=== PATIENT | male | born 1945 | race Caucasian/White ===

== ENCOUNTER 2017-05-07 15:08 | Emergency (ER) | END 2017-05-08 00:39 | disposition home or self-care (01) ==

== ENCOUNTER 2018-05-06 14:42 | Emergency (ER) | payer OTHER ==
[~2018-05-06] VITALS: Ht 175.3 cm; Wt 79.9 kg
[~2018-05-06 14:42] MED LIST: ASPI-535 PO; GLIP5TAB13 PO; HYDR-3672 PO; LISI10TA2 PO
[2018-05-06 14:46] VITALS: Ht 175.3 cm; Wt 79.9 kg
[2018-05-06] MEDS ORDERED: KETOROLAC 15 MG INJ IV STA (15:42)
[2018-05-06] MEDS ORDERED: SOD CHLORIDE 0.9% 500 ML IV STA (15:42)
[2018-05-06] MEDS ORDERED: ASPI-817 PO (15:51)
[2018-05-06] MEDS ORDERED: GLIP5TAB13 PO (15:51)
[2018-05-06] MEDS ORDERED: LISI10TA2 PO (15:51)
[2018-05-06] MEDS ORDERED: ATOR20TA38 PO (15:52)
[2018-05-06] MEDS ORDERED: HYDR-3672 PO (15:52)
[2018-05-06] MEDS ORDERED: LANT3I SC (16:03)
[2018-05-06] MEDS ORDERED: NAPR-985 PO (16:41)
[2018-05-06 16:45] VITALS: BP 123/59; PULSE 62; RESP 20
--- NOTE | 2018-05-06 17:07 | ERD ---
ER Documentation Chief Complaint Chief Complaint sudden CP started last night, sent by PMD here tdoday HPI This is a 73-year-old man referred here by his medical clinic for complaints of chest pain. Patient was triaged as having chest pain beginning last night although upon further questioning and a more thorough HPI including questioning family members were at the bedside my understanding is that the patient has had this chest pain daily times 1 week. The chest pain is intermittent throughout the day usually lasting for a few minutes and then resolving spontaneously. Furthermore the patient states he has had the similar chest pain episodes in the past. He denies shortness of breath, no dizziness, no cough, no calf or leg swelling, no fevers or chills, no vomiting or diarrhea. ROS All systems reviewed and are negative except as per history of present illness. Medications Home Meds Active Scripts Naproxen* (Naprosyn*) 500 Mg Tablet, 500 MG PO BID PRN for PAIN AND/OR INFLAMMATION, #30 TAB Prov:TEQUILA VARGAS MD 05/06/18 Reported Medications Insulin Glargine* (Lantus*) 100 Unit/Ml Soln, 24 UNIT SC QHS, #1 VIAL 05/06/18 Hydralazine Hcl* (Hydralazine Hcl*) 50 Mg Tab, 50 MG PO QID, #60 TAB 05/06/18 Atorvastatin Calcium* (Atorvastatin Calcium*) 20 Mg Tablet, 20 MG PO QHS, #30 TAB 05/06/18 Lisinopril* (Lisinopril*) 10 Mg Tablet, 10 MG PO DAILY, #30 TAB 05/06/18 Glipizide* (Glipizide*) 5 Mg Tablet, 5 MG PO AC BREAKFAST DINNER, TAB 05/06/18 Aspirin* (Aspirin* EC) 81 Mg Tablet.dr, 81 MG PO DAILY, TAB 05/06/18 Discontinued Reported Medications Aspirin Ec (Aspir 81) 81 Mg Tablet.dr, 81 MG PO DAILY, #30 TAB 05/08/17 Lisinopril* (Lisinopril*) 10 Mg Tablet, 10 MG PO DAILY, #30 TAB 05/08/17 Glipizide* (Glipizide*) 5 Mg Tablet, 5 MG PO DAILY, TAB 05/08/17 Discontinued Scripts Hydralazine Hcl* (Hydralazine Hcl*) 50 Mg Tab, 50 MG PO QID, #60 TAB Prov:SHIRA GUILLAUME 01/09/15 Allergies Allergies: Coded Allergies: No Known Allergy (Verified , 05/06/18) PMhx/Soc Diabetes mellitus, hypertension, hyperlipidemia, CAD, angina History of Surgery: Yes (FISTULA surgery) Anesthesia Reaction: No Hx Neurological Disorder: No Hx Respiratory Disorders: No Hx Cardiac Disorders: Yes (HTN) Hx Psychiatric Problems: No Hx Miscellaneous Medical Probl: Yes (DM, high choelsterol) Hx Alcohol Use: No Hx Substance Use: No Hx Tobacco Use: No Smoking Status: Never smoker FmHx Family History: No diabetes Physical Exam Vitals Vital Signs Date Temp Pulse Resp B/P (MAP) Pulse Ox O2 O2 Flow FiO2 Time Delivery Rate 05/06/18 97.6 62 20 123/59 99 Room Air 16:45 (80) 05/06/18 97.6 67 16 126/61 98 Room Air 16:18 (82) 05/06/18 97.6 92 20 164/72 97 14:46 (102) Physical Exam GENERAL: Well-developed, well-nourished, well-hydrated, in no apparent distress, looks nontoxic in appearance HEENT: Moist mucous membranes, pink conjunctiva, no cervical spine tenderness or step-off deformities, no goiter, no jaundice or icterus, extraocular movements intact without pain. No submandibular induration, and no pharyngeal erythema NEURO: Alert and oriented 3, cranial nerves II through XII intact bilaterally, pupils equal round reactive to light, no focal deficits or facial asymmetry, sensation intact distally Strength 5/5 in upper and lower extremities bilatera lly CARDIAC: Regular rate and rhythm, no murmurs rubs or gallops LUNGS: Clear bilaterally no wheezing crackles or stridor ABDOMEN: Soft nontender, no guarding, no rigidity, no rebound, no psoas sign no obturator sign. Normoactive bowel sounds SKIN: Warm and dry to touch, no abrasions, contusions, or hematomas, no lacerations, no ecchymosis, no target lesions, and without ulcers EXTREMITIES: No clubbing cyanosis or edema, calves are bilaterally symmetrical, no Homans sign, no popliteal cord sign. Distal pulses equal and bilateral PSYCH: Normal affect without agitation or irritability Result Diagram: 05/06/18 1547 05/06/18 1547 Results 24 hrs Laboratory Tests Test 05/06/18 15:47 White Blood Count 7.4 10^3/ul Red Blood Count 4.93 10^6/ul Hemoglobin 15.8 g/dl Hematocrit 44.6 % Mean Corpuscular Volume 90.5 fl Mean Corpuscular Hemoglobin 32.0 pg Mean Corpuscular Hemoglobin Concent 35.4 g/dl Red Cell Distribution Width 11.3 % Platelet Count 195 10^3/UL Mean Platelet Volume 10.6 fl Immature Granulocytes % 0.300 % Neutrophils % 62.1 % Lymphocytes % 29.9 % Monocytes % 6.5 % Eosinophils % 0.7 % Basophils % 0.5 % Nucleated Red Blood Cells % 0.0 /100WBC Immature Granulocytes # 0.020 10^3/ul Neutrophils # 4.6 10^3/ul Lymphocytes # 2.2 10^3/ul Monocytes # 0.5 10^3/ul Eosinophils # 0.1 10^3/ul Basophils # 0.0 10^3/ul Nucleated Red Blood Cells # 0.0 10^3/ul Sodium Level 136 mmol/L Potassium Level 4.0 mmol/L Chloride Level 99 mmol/L Carbon Dioxide Level 23 mmol/L Anion Gap 14 Blood Urea Nitrogen 15 mg/dl Creatinine 0.60 mg/dl Est Glomerular Filtrat Rate mL/min mL/min Glucose Level 365 mg/dl Calcium Level 9.1 mg/dl Total Bilirubin 0.3 mg/dl Direct Bilirubin 0.00 mg/dl Indirect Bilirubin 0.3 mg/dl Aspartate Amino Transf (AST/SGOT) 25 IU/L Alanine Aminotransferase (ALT/SGPT) 31 IU/L Alkaline Phosphatase 143 IU/L Troponin I < 0.012 ng/ml Total Protein 7.5 g/dl Albumin 4.4 g/dl Globulin 3.10 g/dl Albumin/Globulin Ratio 1.41 Lipase 94 U/L Current Medications Medications Dose Sig/Will Start Time Status Last (Trade) Ordered Route PRN Stop Time Admin Dose Reason Admin Sodium 500 ml @ Q1H STAT 05/06/18 DC 05/06/18 Chloride 500 mls/hr IV 15:42 15:56 05/06/18 16:41 Ketorolac 15 mg ONCE STAT 05/06/18 DC 05/06/18 Tromethamine IV 15:42 15:56 (Toradol) 05/06/18 15:44 Procedures/MDM IV line was established patient was placed on radiation monitor rhythm strip revealed a sinus rhythm at about 90 bpm with upright P and T waves. Patient was afebrile EKG performed, read by me revealed a normal sinus rhythm at 89 bpm, left axis deviation, right ventricular conduction delay 2 hours duration 102 ms, no concerning ST elevations or depressions noted Chest X-ray 1V Interpreted by me: Soft Tissue: No acute abnormalities Bones: No acute abnormalities Mediastinum/Cardiac Silhouette/Lungs: No acute abnormalities I administered 500 cc normal saline IV and Toradol 15 mg IV x1 CBC and electrolytes were normal, liver function tests were normal, troponin was negative. Blood sugar was a bit elevated but he has not taken his nightly diabetic medications and his nightly insulin dose. Patient's chest pain is completely resolved and vital signs remained normal. He has a long history of this type of recurrent chest pain and I do not suspect today's for this week's episode was related to acute coronary syndrome although given his concerning past medical history I told him to follow-up with his PMD and junior programmer in the next 48 hours. The patient and his family who were at the bedside agreed to this plan. Differential diagnoses considered, included but not limited to acute coronary syndrome, pulmonary embolism, aortic dissection, abdominal aortic aneurysm, sepsis, stroke, meningitis, encephalitis, pneumonia, appendicitis, cholecystitis, bowel obstruction, pyelonephritis, nephrolithiasis, cystitis, as well as metabolic, hematologic, and electrolyte abnormalities. As well as abscess, cellulitis, fractures, and dislocations. Patient feels much better at this time, and vital signs are normal, symptoms have improved. I did give strict instructions to return to the ED if symptoms continue or worsen, patient will otherwise follow-up with primary care physician. Patient understood instructions and agreed to plan. Disclaimer: Inadvertent spelling and grammatical errors are likely due to EHR /dictation software use and do not reflect on the overall quality of patient care. Also, please note that the electronic time recorded on this note does not necessarily reflect the actual time of the patient encounter. Departure Diagnosis: Primary Impression: Chest pain Chest pain type: unspecified Qualified Codes: R07.9 - Chest pain, unspecified Additional Impression: Diabetes mellitus with hyperglycemia Diabetes mellitus type: type 2 Diabetes mellitus care home insulin use: with receiving inspector use Qualified Codes: E11.65 - Type 2 diabetes mellitus with hyperglycemia; Z79.4 - skilled nursing (current) use of insulin Condition: Good Patient Instructions: Hyperglycemia (High Blood Sugar), Chest Pain, Noncardiac TEQUILA VARGAS MD May 06, 2018 17:07
== END 2018-05-06 17:03 | disposition home or self-care (01) ==
LOC: E/R 14:42
DX: R07.9 Chest pain, unspecified (principal); E11.65 Type 2 diabetes mellitus with hyperglycemia; I25.10 Atherosclerotic heart disease of native coronary artery without angina pectoris; I10 Essential (primary) hypertension; Z79.4 Long term (current) use of insulin; Z79.82 Long term (current) use of aspirin
CPT/HCPCS: 36415; 71045; 80053; 83690; 84484; 85025; 93005; 96374; 99285; J1885; J7040